=== PATIENT | female | born 1960 | race African-American/Black ===

== ENCOUNTER 2018-10-09 15:04 | Inpatient (IN) | payer MEDICAID ==
[~2018-10-09] VITALS: Ht 170.2 cm; Wt 73.0 kg
[2018-10-09] MEDS ORDERED: ASPIRIN 81MG TABLET PO ONE (16:00)
[2018-10-09 16:20] LABS: BASOPHILS % 0.7 % (0.0-2.0); EOSINOPHILS % 1.2 % (0.0-5.0); HEMATOCRIT. 38.2 % (36.0-48.0); HEMOGLOBIN. 12.4 g/dL (12.0-16.0); LYMPHOCYTES % 57.2 % (20.0-50.0); MEAN CORPUSCULAR HEMOGLOBIN 24.2 pg (28.0-32.0); MEAN CORPUSCULAR VOLUME 74.8 fL (81.0-99.0); MEAN PLATELET VOLUME 7.6 fl (7.4-10.4); MONOCYTES % 8.9 % (2.0-8.0); PLATELET 242 x1000/uL (130-400); RED BLOOD CELL COUNT 5.11 mill/uL (4.2-5.4)
[2018-10-09 16:25] LABS: CHLORIDE 106 mEq/L (98-107)
[2018-10-09 16:27] LABS: PARTIAL THROMBOPLASTIN TIME 29.6 sec (23.4-31.0); PROTHROMBIN TIME 10.3 sec (9.6-11.0)
[2018-10-09 17:17] LABS: CLARITY URINE CLEAR (CLEAR); COLOR URINE YELLOW (YELLOW); KETONES URINE NEGATIVE (NEGATIVE); LEUKOCYTE ESTERASE URINE NEGATIVE (NEGATIVE); NITRITE URINE NEGATIVE (NEGATIVE); OCCULT BLOOD URINE NEGATIVE (NEGATIVE); PH URINE 5.5 (4.5-8.0); PROTEIN URINE NEGATIVE (NEGATIVE); SPECIFIC GRAVITY URINE 1.007 (1.005-1.030); UROBILINOGEN URINE 0.2 E.U./dL (0.2-1.0)
[2018-10-09] MEDS ORDERED: POTASSIUM CHLORIDE 20MEQ TABLET SR PO ONE (17:45)
[2018-10-09 17:46] LABS: *AMPHETAMINES SCREEN URINE NEGATIVE (NEGATIVE)
[2018-10-09 17:47] LABS: *BARBITURATES SCREEN URINE NEGATIVE (NEGATIVE); *BENZODIAZEPINES SCREEN URINE PRESUMTIVE POSITIVE (NEGATIVE); *COCAINE SCREEN URINE NEGATIVE (NEGATIVE); METHADONE URINE SCREEN NEGATIVE (NEGATIVE); OPIATES URINE SCREEN PRESUMTIVE POSITIVE (NEGATIVE); PHENCYCLIDINE URINE SCREEN NEGATIVE (NEGATIVE)
[2018-10-09 17:48] LABS: CANNABINOID URINE SCREEN PRESUMTIVE POSITIVE (NEGATIVE)
[2018-10-09] MEDS ORDERED: HYDROCODONE/ACETAMINOPHEN 5/325MG TABLET PO ONE (18:15)
[2018-10-09 21:15] VITALS: BP 140/77
[2018-10-09] MEDS ORDERED: CLOP75TA33 PO (21:50)
[2018-10-09] MEDS ORDERED: CHLO25TA2 PO (21:50)
[2018-10-09] MEDS ORDERED: METO-396 PO (21:51)
[2018-10-09] MEDS ORDERED: AMLO5TAB88 PO (21:53)
[2018-10-09] MEDS ORDERED: LEVO100T9 PO (21:53)
[2018-10-09] MEDS ORDERED: FERR325T6 PO (21:56)
[2018-10-09] MEDS ORDERED: ATOR40TA70 PO (21:56)
[2018-10-09] MEDS ORDERED: ASPI-1393 PO (21:56)
[2018-10-09] MEDS ORDERED: METH-612 PO (22:00)
[2018-10-09] MEDS ORDERED: HYDR-4009 PO (22:00)
[2018-10-09] MEDS ORDERED: DIAZ10TA4 PO (22:00)
[2018-10-09] MEDS ORDERED: DIPHENHYDRAMINE 50MG/ML VIAL IV PRN (23:00)
[2018-10-09] MEDS ORDERED: MAGNESIUM/ALUMINUM HYDROXIDE/SIMETHICONE 30ML UDC PO PRN (23:00)
[2018-10-09] MEDS ORDERED: CLONIDINE 0.1MG TABLET PO PRN (23:00)
[2018-10-09] MEDS ORDERED: LORAZEPAM 2MG/ML CPJ IV PRN (23:00)
[2018-10-09] MEDS ORDERED: GUAIFENESIN 200MG/10ML SUGAR FREE UDC PO PRN (23:00)
[2018-10-09] MEDS ORDERED: HYDRALAZINE 20MG/ML VIAL IV PRN (23:00)
[2018-10-09] MEDS ORDERED: ONDANSETRON HCL 4MG/2ML INJ IV PRN (23:00)
[2018-10-09] MEDS ORDERED: IPRATROPIUM/ALBUTEROL 0.5-3(2.5)MG/3ML NEB INH PRN (23:00)
[2018-10-09] MEDS ORDERED: DOCUSATE SODIUM 100MG CAPSULE PO PRN (23:00)
[2018-10-09] MEDS ORDERED: NA PHOS,M-B/NA PHOS,DI-BA ENEMA 118ML PR PRN (23:00)
[2018-10-09] MEDS ORDERED: ENOXAPARIN 40MG/0.4ML SYR SUBCUT SCH (23:00)
[2018-10-09] MEDS ORDERED: ACETAMINOPHEN 325MG TABLET PO PRN (23:00)
[2018-10-09] MEDS ORDERED: HYDROMORPHONE HCL/PF 2MG/ML CPJ IV PRN (23:00)
[2018-10-09] MEDS: HYDROCODONE/ACETAMINOPHEN 10/325MG TABLET PO PRN (23:48)
[2018-10-10] VITALS: BP 175/84
[2018-10-10 01:32] VITALS: BP 145/82
[2018-10-10 04:00] VITALS: BP 133/75
[2018-10-10] MEDS: SODIUM CHLORIDE 0.9% INJ 3ML FLUSH IVF SCH ×2 (06:11→13:46)
[2018-10-10] MEDS: HYDROCODONE/ACETAMINOPHEN 10/325MG TABLET PO PRN ×3 (06:12→14:29)
[2018-10-10 06:42] LABS: BASOPHILS % 0.5 % (0.0-2.0); HEMATOCRIT. 35.9 % (36.0-48.0); HEMOGLOBIN. 11.7 g/dL (12.0-16.0); LYMPHOCYTES % 60.2 % (20.0-50.0); MEAN CORPUSCULAR HEMOGLOBIN 24.2 pg (28.0-32.0); MEAN CORPUSCULAR VOLUME 74.5 fL (81.0-99.0); NEUTROPHILS % 26.3 % (40.0-76.0); PLATELET 222 x1000/uL (130-400); RED BLOOD CELL COUNT 4.83 mill/uL (4.2-5.4); RED CELL DISTRIBUTION WIDTH 16.7 % (11.6-14.6)
[2018-10-10 06:47] LABS: CHLORIDE 107 mEq/L (98-107)
[2018-10-10 07:09] LABS: LDL CHOLESTEROL 81 mg/dL (5-100)
[2018-10-10 07:11] LABS: CREATINE KINASE 166 IU/L (26-192); CREATINE KINASE MB FRACTION < 1.0 ng/mL (0.5-3.6); HDL CHOLESTEROL 42 mg/dL (40-59); T4 FREE 1.02 ng/dL (0.76-1.46)
[2018-10-10 08:00] VITALS: BP 125/76
[2018-10-10] MEDS ORDERED: ASPIRIN 81MG EC TABLET PO SCH (09:00)
[2018-10-10 13:08] VITALS: BP 119/82
[2018-10-10 14:29] VITALS: BP 150/84
== END 2018-10-10 14:44 | disposition home or self-care (01) | DRG 198 ==
LOC: ER 15:04 → 6WST 18:13 → EDBEDREQ 18:14 → EDBEDREQTM 18:14 → ENRESERV 20:03
PROVIDERS: ADMIT Internal Medicine; ATTEND Internal Medicine
DX: R07.89 Other chest pain (principal); I25.10 Atherosclerotic heart disease of native coronary artery without angina pectoris; D72.819 Decreased white blood cell count, unspecified; E03.9 Hypothyroidism, unspecified; E78.00 Pure hypercholesterolemia, unspecified; I10 Essential (primary) hypertension; J44.9 Chronic obstructive pulmonary disease, unspecified; M79.7 Fibromyalgia; Z79.02 Long term (current) use of antithrombotics/antiplatelets; I25.2 Old myocardial infarction; Z79.890 Hormone replacement therapy; Z95.5 Presence of coronary angioplasty implant and graft; Z79.82 Long term (current) use of aspirin
CPT/HCPCS: 36415; 71045; 80061; 80305; 82550; 82553; 83880; 84439; 84443; 84484; 93005; 99285; J2060